=== PATIENT | male | born 1990 | race Caucasian/White ===

== ENCOUNTER 2025-01-18 10:18 | Inpatient (IN) | payer OTHER ==
[~2025-01-18] VITALS: Ht 180.3 cm; Wt 67.6 kg
[2025-01-18 10:41] LABS: VENOUS BASE EXCESS -1.3 (-2.0-2.0); VENOUS HCO3 25.5 MMOL/L (23.0-27.0); VENOUS PARTIAL PRESSURE CO2 50.3 mmHg (38.0-50.0); VENOUS PARTIAL PRESSURE O2 42.5 mmHg (30.0-50.0); VENOUS PH 7.322 UNITS (7.330-7.430); VENOUS STANDARD HCO3 22.8 MMOL/L
[2025-01-18 10:44] LABS: BASO # 0.1 10^3/uL (0.0-0.2); BASO % 0.7 % (0.0-1.0); EOS # 0.1 10^3/uL (0.0-0.5); EOS % 0.8 % (0.0-3.0); HEMATOCRIT 41.5 % (42.0-52.0); HEMOGLOBIN 13.9 g/dl (13.5-17.5); LYMPH # 1.7 10^3/uL (1.5-5.0); MEAN CORPUSCULAR HEMOGLOBIN 32.8 pg (27.0-33.0); MEAN CORPUSCULAR HGB CONC 33.5 g/dl (32.0-36.5); MEAN CORPUSCULAR VOLUME 97.9 fl (80.0-96.0); MONO # 0.7 10^3/uL (0.0-0.8); MONO % 8.5 % (2.0-8.0); NEUTROPHILS % 69.8 % (36.0-66.0); PLATELET COUNT, AUTOMATED 220 10^3/uL (150-450); RED BLOOD COUNT 4.24 10^6/uL (4.30-6.10); WHITE BLOOD COUNT 8.6 10^3/uL (4.0-10.0)
[2025-01-18] MEDS ORDERED: ISOVUE-370 76% 100ML VIAL As Ordered ONE (10:51)
[2025-01-18] MEDS: NS (Normal Saline) 0.9% 1,000 ML IV ONE ×2 (10:53→12:06)
[2025-01-18 11:11] LABS: OSMOLALITY SERUM 295 MOSM/KG (275-295)
[2025-01-18 11:13] LABS: ETHYL ALCOHOL (ETHANOL) < 0.003 % (0.000-0.010)
[2025-01-18 11:14] LABS: SALICYLATE LEVEL < 3.0 MG/DL (<30)
[2025-01-18 11:15] LABS: ALKALINE PHOSPHATASE 48 U/L (40-129); ALT/SGPT 17 U/L (7.0-40); AST/SGOT 35 U/L (<34); BILIRUBIN,DIRECT 0.3 MG/DL (<0.4); BILIRUBIN,TOTAL 1.1 MG/DL (0.3-1.2); BLOOD UREA NITROGEN 6 MG/DL (9-23); CALCIUM LEVEL 9.3 MG/DL (8.5-10.1); CARBON DIOXIDE LEVEL 25 MMOL/L (20-31); CHLORIDE LEVEL 97 MMOL/L (98-107); CREATININE FOR GFR 0.77 MG/DL (0.70-1.30); GLOMERULAR FILTRATION RATE > 90.0 (>60); GLUCOSE, FASTING 114 MG/DL (60-100); POTASSIUM SERUM 3.4 MMOL/L (3.5-5.1); SODIUM LEVEL 137 MMOL/L (136-145); TOTAL PROTEIN 7.6 G/DL (5.7-8.2)
[2025-01-18 11:17] LABS: THYROID STIMULATING HORMONE 4.377 uIU/ML (0.55-4.78)
[2025-01-18 11:46] LABS: CPK CREATINE PHOSPHOKINASE 293 U/L (46-171)
[2025-01-18 11:58] LABS: CK-MB VALUE MASS 1.5 NG/ML (<3.6); MB/CK RELATIVE INDEX 0.51 (< OR =4)
[2025-01-18] MEDS: LIDOCAINE 2% 5ML JELLY UROJET TOP ONE (12:00)
[2025-01-18 12:02] LABS: VALPROIC ACID (DEPAKOTE) < 3.0 UG/ML (50.0-100.0)
[2025-01-18 12:06] LABS: ABG BASE EXCESS 0.8 (-2.0-2.0); ABG HCO3 24.5 MMOL/L (22.0-26.0); ABG O2 SATURATION 97.8 % (95.0-99.0); ABG PARTIAL PRESSURE CO2 36.1 mmHg (35.0-45.0); ABG PARTIAL PRESSURE O2 104.4 mmHg (75.0-100.0); ABG STANDARD HCO3 25.2 MMOL/L. (22.0-26.0); ABG TOTAL CO2 25.6 MMOL/L (22.0-29.0); ABG pH (ARTERIAL) 7.449 UNITS (7.350-7.450)
[2025-01-18 12:18] LABS: KETONE, URINE AUTO RFX NEGATIVE (NEGATIVE); LEUKOCYTE ESTERASE UR AUTO RFX NEGATIVE (NEGATIVE); NITRITE, URINE AUTO RFX NEGATIVE (NEGATIVE); RBC, URINE AUTO RFX 2 /HPF (0-3); SQUAM EPITHELIAL CELL UR AURFX 0 /HPF (0-6); WBC, URINE AUTO RFX 2 /HPF (0-3)
[2025-01-18] MEDS ORDERED: LORazepam 2 MG TAB PO PRN (12:20)
[2025-01-18] MEDS: LORazepam 2 MG TAB PO PRN (12:26)
[2025-01-18 12:39] LABS: AMPHETAMINES LEVEL URINE NEGATIVE (NEGATIVE); PHENCYCLIDINE URINE NEGATIVE (NEGATIVE)
[2025-01-18 12:40] LABS: BARBITURATES URINE NEGATIVE (NEGATIVE); BENZODIAZEPINES URINE NEGATIVE (NEGATIVE); COCAINE METABOLITE URINE NEGATIVE (NEGATIVE); METHADONE URINE NEGATIVE (NEGATIVE); OPIATES URINE NEGATIVE (NEGATIVE)
[2025-01-18 12:42] LABS: CK-MB VALUE MASS 4.7 NG/ML (<3.6)
[2025-01-18 12:43] LABS: MB/CK RELATIVE INDEX 1.14 (< OR =4)
[2025-01-18 12:43] LABS: CANNABINOIDS URINE POSITIVE (NEGATIVE)
[2025-01-18 13:15] LABS: MAGNESIUM LEVEL 1.9 MG/DL (1.8-2.4)
[2025-01-18] MEDS: THIAMINE 100 MG TAB PO SCH (13:42)
[2025-01-18] MEDS: LR 1,000 ML IV ONE (14:20)
[2025-01-18] MEDS: POTASSIUM CHLORIDE 10MEQ SR TABLET PO ONE (14:20)
[2025-01-18 14:32] LABS: FREE T4 1.09 NG/DL (0.89-1.76)
[2025-01-18 14:33] LABS: PROLACTIN 15.31 NG/ML (2.1-17.7)
[2025-01-18] MEDS ORDERED: SERT50TA29 PO (18:36)
[2025-01-18] MEDS ORDERED: ALBU8.5H INH (18:36)
[2025-01-18] MEDS ORDERED: ADVA1AER9 INH (18:36)
[2025-01-18] MEDS ORDERED: FAMO1TAB11 PO (18:36)
[2025-01-18] MEDS ORDERED: BUSP5TA PO (18:36)
[2025-01-18] MEDS ORDERED: ALBU2.5V10 INH (18:36)
[2025-01-18] MEDS ORDERED: HYDR50TA70 PO (18:36)
[2025-01-18] MEDS ORDERED: TRAZ-252 PO (18:36)
[2025-01-18] MEDS ORDERED: CLOT1CRE71 TOP (18:36)
[2025-01-18] MEDS ORDERED: HOME MED LIST COMPLETE! XX SCH (18:40)
[2025-01-18 19:34] VITALS: BP 155/89; TEMP 98.5; O2SAT 96
[2025-01-18] MEDS ORDERED: THIAMINE 100 MG TAB PO SCH (21:00)
[2025-01-18 21:45] VITALS: BP 155/89
[2025-01-18 23:50] VITALS: BP 155/93; TEMP 96.8; O2SAT 99
[2025-01-19] VITALS (24 sets, daily range): BP systolic 96–159; BP diastolic 58–95; TEMP 97–97.7; O2SAT 97–100
[2025-01-19 05:22] LABS: BASO # 0.1 10^3/uL (0.0-0.2); BASO % 0.9 % (0.0-1.0); EOS # 0.1 10^3/uL (0.0-0.5); EOS % 1.7 % (0.0-3.0); HEMATOCRIT 37.5 % (42.0-52.0); HEMOGLOBIN 12.8 g/dl (13.5-17.5); LYMPH # 1.8 10^3/uL (1.5-5.0); LYMPH % 26.7 % (24.0-44.0); MEAN CORPUSCULAR HEMOGLOBIN 32.7 pg (27.0-33.0); MEAN CORPUSCULAR HGB CONC 34.1 g/dl (32.0-36.5); MEAN CORPUSCULAR VOLUME 95.9 fl (80.0-96.0); MONO # 0.6 10^3/uL (0.0-0.8); MONO % 8.1 % (2.0-8.0); NEUTROPHILS # 4.3 10^3/uL (1.5-8.5); NEUTROPHILS % 62.2 % (36.0-66.0); PLATELET COUNT, AUTOMATED 204 10^3/uL (150-450); RED BLOOD COUNT 3.91 10^6/uL (4.30-6.10); WHITE BLOOD COUNT 6.9 10^3/uL (4.0-10.0)
[2025-01-19 06:05] LABS: HEPATITIS B SURFACE ANTIGEN NEGATIVE (NEGATIVE)
[2025-01-19 06:26] LABS: HEPATITIS C VIRUS ABY INDEX 0.02 INDEX (<0.8)
[2025-01-19 06:27] LABS: ALBUMIN 3.6 G/DL (3.2-5.2); ALKALINE PHOSPHATASE 45 U/L (40-129); ALT/SGPT 17 U/L (7.0-40); AST/SGOT 43 U/L (<34); BILIRUBIN,TOTAL 0.8 MG/DL (0.3-1.2); BLOOD UREA NITROGEN < 5 MG/DL (9-23); CALCIUM LEVEL 8.7 MG/DL (8.5-10.1); CARBON DIOXIDE LEVEL 26 MMOL/L (20-31); CHLORIDE LEVEL 99 MMOL/L (98-107); CHOLESTEROL LEVEL 220 MG/DL (<200); CHOLESTEROL RISK RATIO 2.51 (<5); CREATININE FOR GFR 0.57 MG/DL (0.70-1.30); GLOMERULAR FILTRATION RATE > 90.0 (>60); GLUCOSE, FASTING 83 MG/DL (60-100); HDL CHOLESTEROL 87.6 MG/DL (>40); MAGNESIUM LEVEL 1.7 MG/DL (1.8-2.4); NON-HDL-C 132.4 MG/DL; POTASSIUM SERUM 3.5 MMOL/L (3.5-5.1); SODIUM LEVEL 135 MMOL/L (136-145); TOTAL PROTEIN 6.8 G/DL (5.7-8.2); TRIGLYCERIDES LEVEL 297 MG/DL (<150)
[2025-01-19] MEDS ORDERED: LACT20EL PO (07:31)
[2025-01-19 07:32] LABS: HEPATITIS B CORE ANTIBODY IGM NEGATIVE (NEGATIVE)
[2025-01-19] MEDS ORDERED: FOLIC ACID 1MG TAB PO SCH (09:00)
[2025-01-19] MEDS ORDERED: MULTIVITAMINS/MINERALS THERAP 1 TAB PO SCH (09:00)
[2025-01-19] MEDS: LACTULOSE 20GM/30ML SYRUP UDC PO ONE (09:09)
[2025-01-19] MEDS: FOLIC ACID 1MG TAB PO SCH (09:09)
[2025-01-19] MEDS: MULTIVITAMINS/MINERALS THERAP 1 TAB PO SCH (09:10)
[2025-01-19] MEDS: diphenhydrAMINE 50MG/ML VIAL IV STA (10:32)
[2025-01-19] MEDS: LORazepam 2 MG/ML 1ML VIAL IV STA (10:33)
[2025-01-19] MEDS ORDERED: HALOPERIDOL LACTATE 5MG/ML VIAL As Ordered ONE (10:57)
[2025-01-19] MEDS: HALOPERIDOL LACTATE 5MG/ML VIAL IM STA (11:03)
[2025-01-19] MEDS ORDERED: diazePAM 10MG/2ML SYRINGE As Ordered ONE (11:16)
[2025-01-19] MEDS: diazePAM 10MG/2ML SYRINGE IM ONE ×2 (11:22→11:27)
[2025-01-19] MEDS ORDERED: MIDAZOLAM 5MG 5ML VIAL (FOR CHEST TUBE INSERTIONS) As Ordered ONE (11:24)
[2025-01-19] MEDS: MIDAZOLAM 5MG/ML 1ML VIAL IM ONE (11:27)
[2025-01-19] MEDS ORDERED: MIDAZOLAM INJ 2MG/2ML VIAL As Ordered ONE (11:29)
[2025-01-19] MEDS: MIDAZOLAM INJ 2MG/2ML VIAL IV STA (11:30)
[2025-01-19] MEDS: diazePAM 10MG/2ML SYRINGE IV ONE (11:33)
[2025-01-19] MEDS ORDERED: dexmedeTOMIDine (4MCG/ML)200MCG/50ML BTL (PRECEDEX) As Ordered ONE (11:44)
[2025-01-19] MEDS: dexmedeTOMidine 200 MCG in IV 1 EA IV SCH (12:40)
[2025-01-19] MEDS: diazePAM 10MG/2ML SYRINGE IV PRN ×2 (13:09→15:57)
[2025-01-19 13:20] LABS: VENOUS BASE EXCESS -0.1 (-2.0-2.0); VENOUS HCO3 24.6 MMOL/L (23.0-27.0); VENOUS O2 SATURATION 99.1 % (60.0-80.0); VENOUS PARTIAL PRESSURE CO2 40.6 mmHg (38.0-50.0); VENOUS PARTIAL PRESSURE O2 241.2 mmHg (30.0-50.0); VENOUS PH 7.401 UNITS (7.330-7.430); VENOUS STANDARD HCO3 24.4 MMOL/L; VENOUS TOTAL CO2 25.9 MMOL/L (24.0-28.0)
[2025-01-19] MEDS: FORMOTEROL FUMARATE 20 MCG/2 ML INHALATION SOLUTION (PERFOROMIST) INH SCH (13:55)
[2025-01-19] MEDS: BUDESONIDE 0.5 MG/2 ML INHALATION SUSPENSION NEB SCH (13:56)
[2025-01-19] MEDS ORDERED: OXAZEPAM 15MG CAP PO SCH (14:00)
[2025-01-19 18:58] LABS: VENOUS BASE EXCESS -3.5 (-2.0-2.0); VENOUS HCO3 20.7 MMOL/L (23.0-27.0); VENOUS O2 SATURATION 99.2 % (60.0-80.0); VENOUS PARTIAL PRESSURE CO2 35.2 mmHg (38.0-50.0); VENOUS PARTIAL PRESSURE O2 176.7 mmHg (30.0-50.0); VENOUS PH 7.388 UNITS (7.330-7.430); VENOUS STANDARD HCO3 21.6 MMOL/L; VENOUS TOTAL CO2 21.8 MMOL/L (24.0-28.0)
[2025-01-19] MEDS: LACTULOSE 20GM/30ML SYRUP UDC PO SCH (19:56)
[2025-01-20] VITALS (14 sets, daily range): BP systolic 99–155; BP diastolic 53–93; TEMP 97–98.4; O2SAT 97–99
[2025-01-20 00:55] LABS: VENOUS BASE EXCESS -3.2 (-2.0-2.0); VENOUS HCO3 23.4 MMOL/L (23.0-27.0); VENOUS O2 SATURATION 77.9 % (60.0-80.0); VENOUS PARTIAL PRESSURE CO2 47.8 mmHg (38.0-50.0); VENOUS PARTIAL PRESSURE O2 46.4 mmHg (30.0-50.0); VENOUS PH 7.308 UNITS (7.330-7.430); VENOUS STANDARD HCO3 21.4 MMOL/L; VENOUS TOTAL CO2 24.9 MMOL/L (24.0-28.0)
[2025-01-20 05:09] LABS: BASO # 0.1 10^3/uL (0.0-0.2); BASO % 0.8 % (0.0-1.0); EOS # 0.2 10^3/uL (0.0-0.5); EOS % 3.2 % (0.0-3.0); HEMATOCRIT 37.9 % (42.0-52.0); HEMOGLOBIN 12.9 g/dl (13.5-17.5); LYMPH # 1.7 10^3/uL (1.5-5.0); LYMPH % 25.1 % (24.0-44.0); MEAN CORPUSCULAR HEMOGLOBIN 32.9 pg (27.0-33.0); MEAN CORPUSCULAR VOLUME 96.7 fl (80.0-96.0); MONO # 0.6 10^3/uL (0.0-0.8); MONO % 8.3 % (2.0-8.0); NEUTROPHILS # 4.2 10^3/uL (1.5-8.5); NEUTROPHILS % 62.1 % (36.0-66.0); PLATELET COUNT, AUTOMATED 200 10^3/uL (150-450); RED BLOOD COUNT 3.92 10^6/uL (4.30-6.10); WHITE BLOOD COUNT 6.7 10^3/uL (4.0-10.0)
[2025-01-20 05:10] LABS: VENOUS BASE EXCESS -2.5 (-2.0-2.0); VENOUS HCO3 22.3 MMOL/L (23.0-27.0); VENOUS O2 SATURATION 96.2 % (60.0-80.0); VENOUS PARTIAL PRESSURE CO2 38.4 mmHg (38.0-50.0); VENOUS PARTIAL PRESSURE O2 84.5 mmHg (30.0-50.0); VENOUS PH 7.381 UNITS (7.330-7.430); VENOUS STANDARD HCO3 22.4 MMOL/L; VENOUS TOTAL CO2 23.4 MMOL/L (24.0-28.0)
[2025-01-20 05:41] LABS: ALBUMIN 3.6 G/DL (3.2-5.2); ALKALINE PHOSPHATASE 41 U/L (40-129); ALT/SGPT 20 U/L (7.0-40); AST/SGOT 59 U/L (<34); BLOOD UREA NITROGEN 6 MG/DL (9-23); CARBON DIOXIDE LEVEL 24 MMOL/L (20-31); CHLORIDE LEVEL 105 MMOL/L (98-107); CREATININE FOR GFR 0.64 MG/DL (0.70-1.30); GLOMERULAR FILTRATION RATE > 90.0 (>60); GLUCOSE, FASTING 83 MG/DL (60-100); POTASSIUM SERUM 3.2 MMOL/L (3.5-5.1); SODIUM LEVEL 139 MMOL/L (136-145); TOTAL PROTEIN 6.7 G/DL (5.7-8.2)
[2025-01-20] MEDS: POTASSIUM CHLORIDE 10% LIQ 20MEQ/15ML UDC PO ONE (07:54)
[2025-01-20] MEDS: ACETAMINOPHEN 325 MG TAB PO PRN (08:37)
[2025-01-20] MEDS: PANTOPRAZOLE 40MG VIAL IV SCH (09:20)
[2025-01-20] MEDS: ENOXAPARIN 40MG/0.4ML SYRINGE (J1650 PER 10MG) SC SCH (09:21)
[2025-01-20] MEDS: OXAZEPAM 15MG CAP PO SCH (09:22)
[2025-01-20 11:26] LABS: HIV 1&2 SCREEN NEGATIVE (NEGATIVE)
[2025-01-20 11:50] LABS: HEPATITIS B SURFACE ANTIBODY POSITIVE (POSITIVE)
[2025-01-20 12:02] LABS: HEPATITIS B SURFACE ANTIGEN NEGATIVE (NEGATIVE)
[2025-01-20] MEDS: NICOTINE 21MG/24HR 1 EA TRANSDERMAL TD SCH (12:08)
[2025-01-20] MEDS: LORazepam 2 MG TAB PO PRN (12:09)
[2025-01-20 12:23] LABS: HEPATITIS C VIRUS ABY INDEX 0.02 INDEX (<0.8)
[2025-01-20] MEDS: chlordiazePOXIDE 25 MG CAP PO SCH (16:12)
[2025-01-20] MEDS: ADVAIR HFA 230/21MCG INHALER INH SCH (19:09)
[2025-01-20] MEDS: traZODone 50 MG TAB PO PRN (20:17)
[2025-01-20] MEDS: busPIRone 5 MG TAB PO SCH (20:18)
[2025-01-20] MEDS: THIAMINE 100 MG TAB PO SCH (20:18)
[2025-01-21 06:00] VITALS: BP 160/60; TEMP 98.5; O2SAT 97
[2025-01-21 06:11] VITALS: BP 160/60
[2025-01-21 06:37] LABS: BASO % 0.8 % (0.0-1.0); EOS # 0.2 10^3/uL (0.0-0.5); EOS % 3.7 % (0.0-3.0); HEMATOCRIT 36.3 % (42.0-52.0); HEMOGLOBIN 12.3 g/dl (13.5-17.5); MEAN CORPUSCULAR HEMOGLOBIN 33.1 pg (27.0-33.0); MEAN CORPUSCULAR HGB CONC 33.9 g/dl (32.0-36.5); MEAN CORPUSCULAR VOLUME 97.6 fl (80.0-96.0); MONO # 0.5 10^3/uL (0.0-0.8); MONO % 9.9 % (2.0-8.0); NEUTROPHILS # 2.4 10^3/uL (1.5-8.5); NEUTROPHILS % 46.2 % (36.0-66.0); PLATELET COUNT, AUTOMATED 213 10^3/uL (150-450); RED BLOOD COUNT 3.72 10^6/uL (4.30-6.10); WHITE BLOOD COUNT 5.1 10^3/uL (4.0-10.0)
[2025-01-21 06:51] LABS: ALBUMIN 3.7 G/DL (3.2-5.2); ALKALINE PHOSPHATASE 51 U/L (40-129); ALT/SGPT 25 U/L (7.0-40); AST/SGOT 48 U/L (<34); BILIRUBIN,TOTAL 0.4 MG/DL (0.3-1.2); BLOOD UREA NITROGEN < 5 MG/DL (9-23); CALCIUM LEVEL 8.8 MG/DL (8.5-10.1); CARBON DIOXIDE LEVEL 24 MMOL/L (20-31); CHLORIDE LEVEL 106 MMOL/L (98-107); CREATININE FOR GFR 0.59 MG/DL (0.70-1.30); GLOMERULAR FILTRATION RATE > 90.0 (>60); GLUCOSE, FASTING 89 MG/DL (60-100); MAGNESIUM LEVEL 1.7 MG/DL (1.8-2.4); POTASSIUM SERUM 3.2 MMOL/L (3.5-5.1); SODIUM LEVEL 139 MMOL/L (136-145); TOTAL PROTEIN 6.9 G/DL (5.7-8.2)
[2025-01-21] MEDS ORDERED: MAG SULF 1GM/100ML (MAG RUN) 1 GM in IV 1 EA IV ONE (08:00)
[2025-01-21] MEDS: MAGNESIUM OXIDE 400MG TAB (MAG-OX) PO SCH (08:54)
[2025-01-21] MEDS ORDERED: KCL 10MEQ/100ML SWI (KRUN) 10 MEQ in IV 1 EA IV SCH (09:00)
[2025-01-21] MEDS ORDERED: PANTOPRAZOLE 40MG TAB (PROTONIX) PO SCH (09:00)
[2025-01-21] MEDS: MAGNESIUM OXIDE 400MG TAB (MAG-OX) PO ONE (09:08)
[2025-01-21] MEDS: POTASSIUM CHLORIDE 10MEQ SR TABLET PO ONE (09:08)
[2025-01-21] MEDS: FOLIC ACID 1MG TAB PO SCH (09:09)
[2025-01-21] MEDS: MULTIVITAMINS/MINERALS THERAP 1 TAB PO SCH (09:09)
[2025-01-21] MEDS: FAMOTIDINE 20 MG TAB PO SCH (09:09)
[2025-01-21 09:10] VITALS: BP 160/60
[2025-01-21] MEDS: METOPROLOL SUCC (TopROL XL) 50MG **XL** TAB PO ONE (09:10)
[2025-01-21] MEDS: SERTRALINE HCL 50 MG TAB PO SCH (09:10)
[2025-01-21] MEDS ORDERED: MAGN400C PO (10:15)
[2025-01-21] MEDS ORDERED: POTA-298 PO (10:15)
[2025-01-21] MEDS ORDERED: TOPR25TA PO (10:15)
[2025-01-21] MEDS ORDERED: CHLO25CA10 PO (10:18)
== END 2025-01-21 13:27 | disposition home or self-care (01) | DRG 775 ==
LOC: EDBD 10:18 → M ED 10:18 → M ED INP 13:53 → INTOOBSV 13:53 → M PCU 16:13 → M ICU 01-19 11:37 → OBSVTOIN 01-19 14:35
PROVIDERS: ADMIT General Practice; ATTEND Internal Medicine
PROC: B246ZZZ Ultrasonography of Right and Left Heart (ICD-10-PCS; principal; 2025-01-19)
DX: F10.231 Alcohol dependence with withdrawal delirium (principal); G93.41 Metabolic encephalopathy; G92.8 Other toxic encephalopathy; E87.29 Other acidosis; E83.42 Hypomagnesemia; K76.82 Hepatic encephalopathy; I10 Essential (primary) hypertension; F41.9 Anxiety disorder, unspecified; J45.909 Unspecified asthma, uncomplicated; I16.0 Hypertensive urgency; F43.10 Post-traumatic stress disorder, unspecified; D75.89 Other specified diseases of blood and blood-forming organs; Z79.899 Other long term (current) drug therapy; Z59.01 Sheltered homelessness; Z87.820 Personal history of traumatic brain injury; F17.200 Nicotine dependence, unspecified, uncomplicated; F19.10 Other psychoactive substance abuse, uncomplicated; E87.6 Hypokalemia; K21.9 Gastro-esophageal reflux disease without esophagitis

== ENCOUNTER 2025-04-16 00:21 | Observation (INO) | payer OTHER ==
[~2025-04-16] VITALS: Ht 180.3 cm; Wt 61.3 kg
[~2025-04-16 00:21] MED LIST: ADVA115A INH; ADVA1AER9 INH; ALBU2.5V10 INH; ALBU8.5H INH; BUSP10TA PO; BUSP5TA PO; CAPS0.022 TOP; CHLO25CA10 PO; CLOB5CR TOP; CLOT1CRE71 TOP; DICL-235 PO; FAMO1TAB11 PO; FAMO20TA PO; HYDR-3364 PO; HYDR50TA70 PO; LACT20EL PO; LISI10TA22 PO; MAGN400C PO; MAGN400T2 PO; MAGN400T33 PO; METO1TAB32 PO; OMEP40CA4 PO; POTA-298 PO; RAME8TAB2 PO; SERT50TA29 PO; SUCR1TA PO; TOPR25TA PO; TRAZ-252 PO; TRAZ-257 PO; ZOLO100T PO
[2025-04-16 00:52] LABS: BASO # 0.1 10^3/uL (0.0-0.2); BASO % 1.3 % (0.0-1.0); EOS # 0.1 10^3/uL (0.0-0.5); EOS % 3.1 % (0.0-3.0); LYMPH # 1.5 10^3/uL (1.5-5.0); LYMPH % 32.5 % (24.0-44.0); MONO # 0.5 10^3/uL (0.0-0.8); MONO % 9.9 % (2.0-8.0); NEUTROPHILS # 2.4 10^3/uL (1.5-8.5); NEUTROPHILS % 52.8 % (36.0-66.0); PLATELET COUNT, AUTOMATED 171 10^3/uL (150-450)
[2025-04-16 01:20] LABS: CPK CREATINE PHOSPHOKINASE 300 U/L (46-171)
[2025-04-16 01:23] LABS: CALCIUM LEVEL 8.5 MG/DL (8.5-10.1); CARBON DIOXIDE LEVEL 29 MMOL/L (20-31); CHLORIDE LEVEL 97 MMOL/L (98-107); CK-MB VALUE MASS 2.9 NG/ML (<3.6); CREATININE FOR GFR 0.63 MG/DL (0.70-1.30); GLOMERULAR FILTRATION RATE > 90.0 (>60); MB/CK RELATIVE INDEX 0.96 (< OR =4); POTASSIUM SERUM 3.2 MMOL/L (3.5-5.1); SODIUM LEVEL 139 MMOL/L (136-145)
[2025-04-16 02:19] LABS: CK-MB VALUE MASS 2.8 NG/ML (<3.6)
[2025-04-16 02:21] LABS: CPK CREATINE PHOSPHOKINASE 284.0 U/L (46-171); MB/CK RELATIVE INDEX 0.98 (< OR =4)
[2025-04-16] MEDS ORDERED: ISOVUE-370 76% 100 ML VIAL As Ordered ONE (07:26)
[2025-04-16 07:38] LABS: ALT/SGPT 19 U/L (7.0-40); AST/SGOT 39 U/L (<34)
[2025-04-16] MEDS: ONDANSETRON 4MG 2ML VIAL IV ONE (08:01)
[2025-04-16] MEDS: MORPHINE 2 MG/ML 1 ML VIAL IV PRN (08:01)
[2025-04-16] MEDS: NS (Normal Saline) 0.9% 1,000 ML IV ONE (08:02)
[2025-04-16] MEDS ORDERED: MORPHINE 2 MG/ML 1 ML VIAL IV PRN (10:50)
[2025-04-16] MEDS: SERTRALINE 100 MG TAB PO ONE (11:40)
[2025-04-16] MEDS: LR 1,000 ML IV ONE (11:50)
[2025-04-16] MEDS: KETOROLAC 30 MG/ML 1 ML VIAL IV SCH (11:51)
[2025-04-16] MEDS: PANTOPRAZOLE 40MG VIAL IV ONE (11:51)
[2025-04-16] MEDS: HYDROMORPHONE HCL 0.5 MG/0.5 ML SYRINGE IV ONE (11:52)
[2025-04-16] MEDS: amLODIPine 10 MG TAB PO ONE (13:20)
[2025-04-16] MEDS ORDERED: traZODone 100 MG TAB PO PRN (13:25)
[2025-04-16] MEDS ORDERED: CLOB5CR TOP (13:53)
[2025-04-16] MEDS ORDERED: TRAZ-257 PO (13:53)
[2025-04-16] MEDS ORDERED: LISI10TA22 PO (13:53)
[2025-04-16] MEDS ORDERED: ROZE8TAB16 PO (13:53)
[2025-04-16] MEDS ORDERED: ZOLO100T PO (13:53)
[2025-04-16] MEDS ORDERED: BUSP10TA PO (13:53)
[2025-04-16] MEDS ORDERED: HYDR-3363 PO (13:53)
[2025-04-16] MEDS ORDERED: FAMO20TA PO (13:53)
[2025-04-16] MEDS ORDERED: ADVA115A INH (13:53)
[2025-04-16] MEDS ORDERED: HOME MED LIST COMPLETE! XX SCH (14:00)
[2025-04-16] MEDS: amLODIPine 10 MG TAB PO SCH (16:00)
[2025-04-16] MEDS: SERTRALINE 100 MG TAB PO SCH (16:00)
[2025-04-16] MEDS: KCL 40MEQ in NS 1000ML 1,000 ML IV SCH (16:02)
[2025-04-16] MEDS: ISOSORBIDE DINITRATE 10 MG TAB PO SCH (16:02)
[2025-04-16] MEDS: FOLIC ACID 1 MG TAB PO SCH (16:07)
[2025-04-16] MEDS: THIAMINE 100 MG TAB PO SCH (16:07)
[2025-04-16] MEDS: MULTIVITAMINS/MINERALS THERAP 1 TAB PO SCH (16:07)
[2025-04-16] MEDS: SUCRALFATE 1 GM TAB PO SCH (17:48)
[2025-04-16] MEDS: **hydrALAZINE** 10 MG TAB PO SCH (17:49)
[2025-04-16] MEDS: PERCOCET 5MG/325MG TAB PO PRN ×2 (17:49→22:33)
[2025-04-16 18:31] LABS: CK-MB VALUE MASS 2.3 NG/ML (<3.6)
[2025-04-16 18:32] LABS: CPK CREATINE PHOSPHOKINASE 196.0 U/L (46-171); MB/CK RELATIVE INDEX 1.17 (< OR =4)
[2025-04-17 02:01] LABS: CK-MB VALUE MASS 2.2 NG/ML (<3.6)
[2025-04-17 02:02] LABS: CPK CREATINE PHOSPHOKINASE 176.0 U/L (46-171); MB/CK RELATIVE INDEX 1.25 (< OR =4)
[2025-04-17 06:58] LABS: BASO # 0.0 10^3/uL (0.0-0.2); BASO % 0.5 % (0.0-1.0); EOS # 0.3 10^3/uL (0.0-0.5); EOS % 4.5 % (0.0-3.0); LYMPH # 1.3 10^3/uL (1.5-5.0); LYMPH % 19.9 % (24.0-44.0); MONO # 0.5 10^3/uL (0.0-0.8); MONO % 6.8 % (2.0-8.0); NEUTROPHILS # 4.5 10^3/uL (1.5-8.5); NEUTROPHILS % 67.8 % (36.0-66.0); PLATELET COUNT, AUTOMATED 165 10^3/uL (150-450)
[2025-04-17 07:27] LABS: CK-MB VALUE MASS 2.5 NG/ML (<3.6)
[2025-04-17 07:29] LABS: CPK CREATINE PHOSPHOKINASE 173 U/L (46-171); MB/CK RELATIVE INDEX 1.44 (< OR =4)
[2025-04-17 07:31] LABS: ALT/SGPT 20 U/L (7.0-40); AST/SGOT 39 U/L (<34); CALCIUM LEVEL 9.0 MG/DL (8.5-10.1); CARBON DIOXIDE LEVEL 29 MMOL/L (20-31); CHLORIDE LEVEL 101 MMOL/L (98-107); CREATININE FOR GFR 0.61 MG/DL (0.70-1.30); GLOMERULAR FILTRATION RATE > 90.0 (>60); POTASSIUM SERUM 4.4 MMOL/L (3.5-5.1); SODIUM LEVEL 140 MMOL/L (136-145)
[2025-04-17] MEDS: PERCOCET 5MG/325MG TAB PO ONE (08:00)
[2025-04-17] MEDS ORDERED: PANTOPRAZOLE 40MG VIAL IV SCH (09:00)
[2025-04-17 10:38] VITALS: BP 147/108
[2025-04-17] MEDS: LOSARTAN 50 MG TABLET PO ONE (10:38)
[2025-04-17] MEDS: PANTOPRAZOLE 40MG TAB PO ONE (10:39)
[2025-04-17] MEDS: amLODIPine 10 MG TAB PO SCH (10:39)
[2025-04-17] MEDS: POTASSIUM CHLORIDE 10MEQ SR TABLET PO ONE (10:39)
[2025-04-17] MEDS ORDERED: AMLO1TAB25 PO (11:14)
[2025-04-17] MEDS ORDERED: LOSA50TA28 PO (11:14)
[2025-04-17] MEDS ORDERED: PROT1TAB2 PO (11:14)
[2025-04-17] MEDS ORDERED: TALK1KIT MC (11:14)
[2025-04-17] MEDS ORDERED: ZOLO100T PO (11:14)
[2025-04-17] MEDS ORDERED: CARA1TAB6 PO (11:14)
[2025-04-17 12:00] VITALS: BP 154/91; TEMP 97.9; O2SAT 98
[2025-04-17] MEDS: LACTULOSE 20 GM/30 ML SYRUP UDC PO ONE (12:12)
[2025-04-17] MEDS: SENNOSIDES/DOCUSATE SODIUM 8.6 MG/50MG TAB PO ONE (12:13)
[2025-04-18] MEDS ORDERED: PANTOPRAZOLE 40MG TAB PO SCH (09:00)
[2025-04-18] MEDS ORDERED: LOSARTAN 50 MG TABLET PO SCH (09:00)
== END 2025-04-17 12:26 | disposition home or self-care (01) ==
LOC: M ED 00:21 → UNDOADMOB 11:22 → INTOOBSV 11:22 → M ED INP 11:22
PROVIDERS: ADMIT General Practice; ATTEND General Practice
DX: R07.89 Other chest pain (principal); K29.70 Gastritis, unspecified, without bleeding; I16.0 Hypertensive urgency; E87.6 Hypokalemia; Z91.148 Patient's other noncompliance with medication regimen for other reason; F19.11 Other psychoactive substance abuse, in remission; Z87.820 Personal history of traumatic brain injury; F43.10 Post-traumatic stress disorder, unspecified; F41.9 Anxiety disorder, unspecified; F10.90 Alcohol use, unspecified, uncomplicated; F12.90 Cannabis use, unspecified, uncomplicated; F17.200 Nicotine dependence, unspecified, uncomplicated; J45.909 Unspecified asthma, uncomplicated; K21.9 Gastro-esophageal reflux disease without esophagitis; Z59.00 Homelessness unspecified; Z79.899 Other long term (current) drug therapy; Z79.51 Long term (current) use of inhaled steroids
CPT/HCPCS: 36415; 71045; 71275; 74177; 78226; 80048; 80053; 80076; 82550; 82553; 83690; 84484; 85025; 87486; 87581; 87633; 87798; 93005; 93041; 94760; 96374; 96375; 96376; 99285; A9537; J1171; J1885; J2405; J2470; Q9967

== ENCOUNTER 2025-05-23 13:47 | Emergency (ER) | payer OTHER ==
[~2025-05-23] VITALS: Ht 180.3 cm; Wt 65.1 kg
[~2025-05-23 13:47] MED LIST changes: +AMLO1TAB25 PO; +CARA1TAB6 PO; +HYDR-3363 PO; +LOSA50TA28 PO; +PROT1TAB2 PO; +ROZE8TAB16 PO; +TALK1KIT MC
[2025-05-23] MEDS: ONDANSETRON 4MG 2ML VIAL IV ONE (18:38)
[2025-05-23] MEDS: NS (Normal Saline) 0.9% 1,000 ML IV ONE (18:39)
[2025-05-23 18:50] LABS: BASO # 0.1 10^3/uL (0.0-0.2); BASO % 1.4 % (0.0-1.0); EOS # 0.1 10^3/uL (0.0-0.5); EOS % 1.8 % (0.0-3.0); LYMPH # 1.8 10^3/uL (1.5-5.0); LYMPH % 32.6 % (24.0-44.0); MONO # 0.4 10^3/uL (0.0-0.8); MONO % 6.9 % (2.0-8.0); NEUTROPHILS # 3.2 10^3/uL (1.5-8.5); NEUTROPHILS % 57.1 % (36.0-66.0); PLATELET COUNT, AUTOMATED 225 10^3/uL (150-450)
[2025-05-23 19:13] LABS: ALT/SGPT 35 U/L (7.0-40); AST/SGOT 81 U/L (<34); CALCIUM LEVEL 9.1 MG/DL (8.5-10.1); CARBON DIOXIDE LEVEL 29 MMOL/L (20-31); CHLORIDE LEVEL 99 MMOL/L (98-107); CREATININE FOR GFR 0.58 MG/DL (0.70-1.30); GLOMERULAR FILTRATION RATE > 90.0 (>60); POTASSIUM SERUM 3.8 MMOL/L (3.5-5.1); SODIUM LEVEL 142 MMOL/L (136-145)
[2025-05-23] MEDS: ACETAMINOPHEN *IV* 1,000 MG in IV 1 EA IV ONE (20:00)
[2025-05-23] MEDS ORDERED: ONDA-282 PO (20:36)
[2025-05-23] MEDS: KETOROLAC 30 MG/ML 1 ML VIAL IV ONE (20:50)
[2025-05-23 21:17] VITALS: BP 135/90; TEMP 97.5; O2SAT 98
== END 2025-05-23 21:17 | disposition home or self-care (01) ==
LOC: M ED 13:47
DX: S06.0X0A Concussion without loss of consciousness, initial encounter (principal); W01.0XXA Fall on same level from slipping, tripping and stumbling without subsequent striking against object, initial encounter; Y92.9 Unspecified place or not applicable; Y93.9 Activity, unspecified; Y99.9 Unspecified external cause status; M50.222 Other cervical disc displacement at C5-C6 level; K21.9 Gastro-esophageal reflux disease without esophagitis; K52.9 Noninfective gastroenteritis and colitis, unspecified; I10 Essential (primary) hypertension; G93.41 Metabolic encephalopathy; F17.200 Nicotine dependence, unspecified, uncomplicated; M50.223 Other cervical disc displacement at C6-C7 level; M51.27 Other intervertebral disc displacement, lumbosacral region
CPT/HCPCS: 70450; 72125; 72128; 72131; 80048; 80076; 85025; 96361; 96374; 96375; 99284; J0131; J1885; J2405; J2765

== ENCOUNTER 2025-06-03 17:45 | Inpatient (IN) | payer OTHER, MEDICAID ==
[~2025-06-03] VITALS: Ht 180.3 cm; Wt 63.1 kg
[~2025-06-03 17:45] MED LIST changes: +ONDA-282 PO
[2025-06-03] MEDS: NS (Normal Saline) 0.9% 1,000 ML IV ONE (18:09)
[2025-06-03] MEDS: diphenhydrAMINE 50 MG/ML VIAL IV STA (18:09)
[2025-06-03] MEDS: KETOROLAC 30 MG/ML 1 ML VIAL IV ONE (19:56)
[2025-06-03] MEDS: ACETAMINOPHEN *IV* 1,000 MG in IV 1 EA IV ONE (19:56)
[2025-06-03] MEDS: ONDANSETRON 4MG 2ML VIAL IV ONE (19:56)
[2025-06-03 20:03] LABS: CALCIUM LEVEL 8.8 MG/DL (8.5-10.1); CARBON DIOXIDE LEVEL 27 MMOL/L (20-31); CHLORIDE LEVEL 101 MMOL/L (98-107); CREATININE FOR GFR 0.63 MG/DL (0.70-1.30); GLOMERULAR FILTRATION RATE > 90.0 (>60); POTASSIUM SERUM 3.7 MMOL/L (3.5-5.1); SODIUM LEVEL 142 MMOL/L (136-145)
[2025-06-03] MEDS: HALOPERIDOL LACTATE 5 MG/ML VIAL IV ONE (21:31)
[2025-06-03 23:26] LABS: BASO # 0.1 10^3/uL (0.0-0.2); BASO % 0.6 % (0.0-1.0); EOS # 0.0 10^3/uL (0.0-0.5); EOS % 0.2 % (0.0-3.0); LYMPH # 1.2 10^3/uL (1.5-5.0); LYMPH % 13.4 % (24.0-44.0); MONO # 0.7 10^3/uL (0.0-0.8); MONO % 7.5 % (2.0-8.0); NEUTROPHILS # 6.9 10^3/uL (1.5-8.5); NEUTROPHILS % 78.0 % (36.0-66.0); PLATELET COUNT, AUTOMATED 177 10^3/uL (150-450)
[2025-06-03 23:48] LABS: ALT/SGPT 76.0 U/L (7.0-40); AST/SGOT 111.0 U/L (<34)
[2025-06-04] VITALS (8 sets, daily range): BP systolic 118–184; BP diastolic 73–96; TEMP 97.5–98.4; O2SAT 97–99
[2025-06-04] MEDS ORDERED: ISOVUE-370 76% 100 ML VIAL As Ordered ONE (04:47)
[2025-06-04] MEDS: LIDOCAINE 2% 5 ML JELLY UROJET TOP ONE (05:00)
[2025-06-04] MEDS: NS (Normal Saline) 0.9% 1,000 ML IV ONE ×4 (05:14→12:51)
[2025-06-04] MEDS: MORPHINE 4 MG/ML 1 ML VIAL IV PRN (05:19)
[2025-06-04] MEDS ORDERED: ALBUTEROL SULFATE 2.5 MG/0.5 ML INH CONCENTRATE NEB SOLN NEB PRN (05:25)
[2025-06-04] MEDS ORDERED: ONDANSETRON 4MG 2ML VIAL IV PRN (05:30)
[2025-06-04] MEDS ORDERED: MORPHINE 4 MG/ML 1 ML VIAL IV PRN ×2 (05:30)
[2025-06-04 05:42] LABS: APPEARANCE, URINE CLEAR (CLEAR); BACTERIA, URINE AUTO NEGATIVE (NEGATIVE); BILIRUBIN, URINE AUTO NEGATIVE (NEGATIVE); BLOOD, URINE BLOOD NEGATIVE (NEGATIVE); GLUCOSE, URINE (UA) AUTO NEGATIVE (NEGATIVE); KETONE, URINE AUTO 1+ mg/dL (NEGATIVE); LEUKOCYTE ESTERASE, URINE AUTO NEGATIVE (NEGATIVE); MUCUS, URINE SMALL (NEGATIVE); NITRITE, URINE AUTO NEGATIVE (NEGATIVE); PROTEIN, URINE AUTO NEGATIVE (NEGATIVE); RBC, URINE AUTO 0 /HPF (0-3); SPECIFIC GRAVITY URINE AUTO 1.014 (1.002-1.035); SQUAMOUS EPITHELIAL CELL UR AU 0 /HPF (0-6); UROBILINOGEN, URINE AUTO 0.2 mg/dL (0.0-2.0); WBC, URINE AUTO 0 /HPF (0-3)
[2025-06-04 06:14] LABS: AMPHETAMINES LEVEL URINE NEGATIVE (NEGATIVE); BARBITURATES URINE NEGATIVE (NEGATIVE); BENZODIAZEPINES URINE NEGATIVE (NEGATIVE); COCAINE METABOLITE URINE NEGATIVE (NEGATIVE); METHADONE URINE NEGATIVE (NEGATIVE); OPIATES URINE NEGATIVE (NEGATIVE); PHENCYCLIDINE URINE NEGATIVE (NEGATIVE)
[2025-06-04 06:15] LABS: CANNABINOIDS URINE POSITIVE (NEGATIVE)
[2025-06-04] MEDS ORDERED: NICOTINE 14 MG/24 HR TRANSDERMAL TD PRN (06:15)
[2025-06-04] MEDS ORDERED: NICOTINE POLACRILEX 2 MG GUM PO PRN (06:15)
[2025-06-04 06:26] LABS: CHOLESTEROL LEVEL 243.0 MG/DL (<200); CHOLESTEROL RISK RATIO 2.1 (<5); LDL CHOLESTEROL 96.5 MG/DL (<100); NON-HDL-C 127.5 MG/DL; TRIGLYCERIDES LEVEL 155.0 MG/DL (<150)
[2025-06-04 06:42] LABS: BASO # 0.1 10^3/uL (0.0-0.2); BASO % 0.8 % (0.0-1.0); EOS # 0.0 10^3/uL (0.0-0.5); EOS % 0.6 % (0.0-3.0); LYMPH # 1.1 10^3/uL (1.5-5.0); LYMPH % 15.2 % (24.0-44.0); MONO # 0.7 10^3/uL (0.0-0.8); MONO % 9.6 % (2.0-8.0); NEUTROPHILS # 5.2 10^3/uL (1.5-8.5); NEUTROPHILS % 73.4 % (36.0-66.0); PLATELET COUNT, AUTOMATED 169 10^3/uL (150-450)
[2025-06-04] MEDS: LR 1,000 ML IV SCH (06:43)
[2025-06-04] MEDS: THIAMINE 100 MG TAB PO SCH (06:45)
[2025-06-04 06:53] LABS: INR 0.93
[2025-06-04 07:32] LABS: CALCIUM LEVEL 7.8 MG/DL (8.5-10.1); CARBON DIOXIDE LEVEL 23 MMOL/L (20-31); CHLORIDE LEVEL 99 MMOL/L (98-107); CREATININE FOR GFR 0.57 MG/DL (0.70-1.30); GLOMERULAR FILTRATION RATE > 90.0 (>60); POTASSIUM SERUM 3.6 MMOL/L (3.5-5.1); SODIUM LEVEL 139 MMOL/L (136-145)
[2025-06-04] MEDS ORDERED: ONDA-282 PO (07:59)
[2025-06-04] MEDS ORDERED: HOME MED LIST COMPLETE! XX SCH (08:00)
[2025-06-04] MEDS ORDERED: NALOXONE INJ 0.4 MG/1 ML VIAL IV PRN (08:45)
[2025-06-04] MEDS: HYDROMORPHONE HCL 0.5 MG/0.5 ML SYRINGE IV ONE ×2 (09:04→16:08)
[2025-06-04] MEDS ORDERED: ONDANSETRON 4MG 2ML VIAL IV SCH (10:00)
[2025-06-04 10:27] LABS: MAGNESIUM LEVEL 1.5 MG/DL (1.8-2.4); POTASSIUM SERUM 3.5 MMOL/L (3.5-5.1)
[2025-06-04] MEDS: CALCIUM GLUCONATE 1,000 MG in DEXTROSE 5% (D5W) MINI-BAG PLU 100 ML IV ONE (10:49)
[2025-06-04] MEDS: POTASSIUM CHLORIDE 10MEQ SR TABLET PO ONE (10:50)
[2025-06-04] MEDS: KETOROLAC 30 MG/ML 1 ML VIAL IV SCH (10:51)
[2025-06-04] MEDS: FOLIC ACID 1 MG TAB PO SCH (10:51)
[2025-06-04] MEDS: SCOPOLAMINE 1MG TRANSDERMAL PATCH TOP SCH (10:51)
[2025-06-04] MEDS: MULTIVITAMINS/MINERALS THERAP 1 TAB PO SCH (10:51)
[2025-06-04] MEDS: HYDROMORPHONE HCL 0.5 MG/0.5 ML SYRINGE IV PRN (11:58)
[2025-06-04] MEDS: MAG SULF 1GM/100ML (MAG RUN) 1 GM in IV 1 EA IV ONE (12:50)
[2025-06-04] MEDS ORDERED: LOPERAMIDE 2 MG CAPLET PO PRN (15:20)
[2025-06-04] MEDS: LOPERAMIDE 2 MG CAPLET PO ONE (15:38)
[2025-06-04] MEDS: NS (Normal Saline) 0.9% 1,000 ML IV SCH (15:38)
[2025-06-04] MEDS: amLODIPine 10 MG TAB PO ONE (15:39)
[2025-06-04 16:00] LABS: CALCIUM LEVEL 7.7 MG/DL (8.5-10.1); CARBON DIOXIDE LEVEL 26 MMOL/L (20-31); CHLORIDE LEVEL 101 MMOL/L (98-107); CREATININE FOR GFR 0.60 MG/DL (0.70-1.30); GLOMERULAR FILTRATION RATE > 90.0 (>60); POTASSIUM SERUM 3.9 MMOL/L (3.5-5.1); SODIUM LEVEL 139 MMOL/L (136-145)
[2025-06-04 16:04] LABS: MAGNESIUM LEVEL 1.8 MG/DL (1.8-2.4); POTASSIUM SERUM 3.9 MMOL/L (3.5-5.1)
[2025-06-04] MEDS: KCL 20MEQ IN D5/NS 1000ML 1,000 ML IV SCH (21:23)
[2025-06-04] MEDS: MAGNESIUM OXIDE 400 MG TAB PO SCH (21:24)
[2025-06-04] MEDS: CALCIUM CARBONATE 500 MG CHEW U/D PO SCH (21:26)
[2025-06-04] MEDS: POTASSIUM CHLORIDE 10MEQ SR TABLET PO SCH (21:26)
[2025-06-04 21:54] LABS: MAGNESIUM LEVEL 1.6 MG/DL (1.8-2.4); POTASSIUM SERUM 4.0 MMOL/L (3.5-5.1)
[2025-06-05] VITALS (9 sets, daily range): BP systolic 101–150; BP diastolic 71–84; TEMP 97.2–99; O2SAT 96–99
[2025-06-05] MEDS: HYDROMORPHONE HCL 0.5 MG/0.5 ML SYRINGE IV PRN (00:18)
[2025-06-05 03:26] LABS: PLATELET COUNT, AUTOMATED 165 10^3/uL (150-450)
[2025-06-05 03:53] LABS: MAGNESIUM LEVEL 1.7 MG/DL (1.8-2.4); POTASSIUM SERUM 4.3 MMOL/L (3.5-5.1)
[2025-06-05 04:18] LABS: ALT/SGPT 48 U/L (7.0-40); AST/SGOT 57 U/L (<34); CALCIUM LEVEL 8.6 MG/DL (8.5-10.1); CARBON DIOXIDE LEVEL 26 MMOL/L (20-31); CHLORIDE LEVEL 102 MMOL/L (98-107); CREATININE FOR GFR 0.49 MG/DL (0.70-1.30); GLOMERULAR FILTRATION RATE > 90.0 (>60); POTASSIUM SERUM 4.3 MMOL/L (3.5-5.1); SODIUM LEVEL 137 MMOL/L (136-145)
[2025-06-05 08:52] LABS: MAGNESIUM LEVEL 1.8 MG/DL (1.8-2.4); POTASSIUM SERUM 4.3 MMOL/L (3.5-5.1)
[2025-06-05] MEDS: CALCIUM GLUCONATE 1,000 MG in DEXTROSE 5% (D5W) MINI-BAG PLU 100 ML IV ONE (09:33)
[2025-06-05] MEDS: MAG SULF 1GM/100ML (MAG RUN) 1 GM in IV 1 EA IV ONE (11:07)
[2025-06-05] MEDS: NS (Normal Saline) 0.9% 1,000 ML IV SCH (11:07)
[2025-06-05 15:53] LABS: MAGNESIUM LEVEL 2.0 MG/DL (1.8-2.4); POTASSIUM SERUM 4.2 MMOL/L (3.5-5.1)
[2025-06-05 21:20] LABS: MAGNESIUM LEVEL 1.9 MG/DL (1.8-2.4); POTASSIUM SERUM 3.9 MMOL/L (3.5-5.1)
[2025-06-06] VITALS (7 sets, daily range): BP systolic 108–145; BP diastolic 69–82; TEMP 98.4–99; O2SAT 99
[2025-06-06 03:25] LABS: PLATELET COUNT, AUTOMATED 154 10^3/uL (150-450)
[2025-06-06 04:04] LABS: ALT/SGPT 38 U/L (7.0-40); AST/SGOT 43 U/L (<34); CALCIUM LEVEL 8.2 MG/DL (8.5-10.1); CARBON DIOXIDE LEVEL 25 MMOL/L (20-31); CHLORIDE LEVEL 105 MMOL/L (98-107); CREATININE FOR GFR 0.57 MG/DL (0.70-1.30); GLOMERULAR FILTRATION RATE > 90.0 (>60); MAGNESIUM LEVEL 2.0 MG/DL (1.8-2.4); POTASSIUM SERUM 4.0 MMOL/L (3.5-5.1); SODIUM LEVEL 140 MMOL/L (136-145)
[2025-06-06] MEDS ORDERED: LOPERAMIDE 2 MG CAPLET PO PRN (09:45)
[2025-06-06] MEDS: LOPERAMIDE 2 MG CAPLET PO ONE (10:00)
[2025-06-06] MEDS: NS (Normal Saline) 0.9% 1,000 ML IV ONE (10:45)
[2025-06-06 10:55] LABS: MAGNESIUM LEVEL 2.0 MG/DL (1.8-2.4); POTASSIUM SERUM 4.2 MMOL/L (3.5-5.1)
[2025-06-06] MEDS ORDERED: CALCIUM GLUCONATE 1,000 MG in DEXTROSE 5% (D5W) MINI-BAG PLU 100 ML IV ONE (11:00)
[2025-06-06] MEDS: MAG SULF 1GM/100ML (MAG RUN) 1 GM in IV 1 EA IV ONE (11:54)
[2025-06-06] MEDS: POTASSIUM CHLORIDE 10MEQ SR TABLET PO ONE (11:55)
[2025-06-06] MEDS ORDERED: THIA100T7 PO (12:33)
[2025-06-06] MEDS ORDERED: FOLI1TAB11 PO (12:33)
[2025-06-06] MEDS ORDERED: MAGN400T33 PO (12:33)
[2025-06-06] MEDS ORDERED: NICO1DIS10 TOP (12:33)
[2025-06-06] MEDS: CALCIUM GLUCONATE 1,000 MG in DEXTROSE 5% (D5W) MINI-BAG PLU 100 ML IV ONE (13:01)
== END 2025-06-06 14:23 | disposition home or self-care (01) | DRG 282 ==
LOC: EDBD 17:45 → M ED 17:45 → M ED INP 17:46 → M MS4PR 06-04 08:25 → OBSVTOIN 06-04 09:22 → M MSPAV 06-04 16:18 → M MS4PR 06-04 16:18 → UNDODISIN 06-06 14:23
PROVIDERS: ADMIT Student in an Organized Health Care Education/Training Program; ATTEND Student in an Organized Health Care Education/Training Program
DX: K85.90 Acute pancreatitis without necrosis or infection, unspecified (principal); I10 Essential (primary) hypertension; K70.9 Alcoholic liver disease, unspecified; J45.909 Unspecified asthma, uncomplicated; F41.9 Anxiety disorder, unspecified; R33.9 Retention of urine, unspecified; F17.200 Nicotine dependence, unspecified, uncomplicated; F12.10 Cannabis abuse, uncomplicated; R94.31 Abnormal electrocardiogram [ECG] [EKG]; R19.7 Diarrhea, unspecified; F10.10 Alcohol abuse, uncomplicated; Z59.00 Homelessness unspecified; Z79.899 Other long term (current) drug therapy; Z87.820 Personal history of traumatic brain injury

== ENCOUNTER 2025-06-13 00:04 | Emergency (ER) | payer MEDICAID, OTHER ==
[~2025-06-13] VITALS: Ht 180.3 cm; Wt 61.4 kg
[~2025-06-13 00:04] MED LIST changes: +FOLI1TAB11 PO; +NICO1DIS10 TOP; +THIA100T7 PO
[2025-06-13 04:23] LABS: BASO # 0.1 10^3/uL (0.0-0.2); BASO % 1.7 % (0.0-1.0); EOS # 0.1 10^3/uL (0.0-0.5); EOS % 0.8 % (0.0-3.0); LYMPH # 2.0 10^3/uL (1.5-5.0); LYMPH % 27.2 % (24.0-44.0); MONO # 0.7 10^3/uL (0.0-0.8); MONO % 9.3 % (2.0-8.0); NEUTROPHILS # 4.4 10^3/uL (1.5-8.5); NEUTROPHILS % 60.7 % (36.0-66.0); PLATELET COUNT, AUTOMATED 292 10^3/uL (150-450)
[2025-06-13 04:49] LABS: CALCIUM LEVEL 9.0 MG/DL (8.5-10.1); CARBON DIOXIDE LEVEL 25 MMOL/L (20-31); CHLORIDE LEVEL 97 MMOL/L (98-107); CREATININE FOR GFR 0.54 MG/DL (0.70-1.30); GLOMERULAR FILTRATION RATE > 90.0 (>60); MAGNESIUM LEVEL 2.0 MG/DL (1.8-2.4); POTASSIUM SERUM 3.9 MMOL/L (3.5-5.1); SODIUM LEVEL 138 MMOL/L (136-145)
[2025-06-13 07:30] VITALS: BP 139/87; TEMP 97.2; O2SAT 96
== END 2025-06-13 08:21 | disposition home or self-care (01) ==
LOC: M ED 00:04
DX: S90.821A Blister (nonthermal), right foot, initial encounter (principal); S90.822A Blister (nonthermal), left foot, initial encounter; Y92.9 Unspecified place or not applicable; Y93.9 Activity, unspecified; Y99.9 Unspecified external cause status; I45.10 Unspecified right bundle-branch block; F17.210 Nicotine dependence, cigarettes, uncomplicated; F19.10 Other psychoactive substance abuse, uncomplicated; F10.10 Alcohol abuse, uncomplicated; Z79.51 Long term (current) use of inhaled steroids; Z79.899 Other long term (current) drug therapy

== ENCOUNTER 2025-06-26 19:49 | Emergency (ER) | payer OTHER ==
[~2025-06-26] VITALS: Ht 180.3 cm; Wt 61.4 kg
[2025-06-27 09:00] VITALS: BP 169/97; O2SAT 97
[2025-06-27 09:05] VITALS: TEMP 97
== END 2025-06-27 09:25 | disposition home or self-care (01) ==
LOC: M ED 19:49
DX: M21.372 Foot drop, left foot (principal); J45.909 Unspecified asthma, uncomplicated; F10.10 Alcohol abuse, uncomplicated; Z79.51 Long term (current) use of inhaled steroids; Z79.899 Other long term (current) drug therapy

== ENCOUNTER 2025-07-11 | Emergency (ER) | payer OTHER ==
[~2025-07-11] VITALS: Ht 177.8 cm; Wt 66.9 kg
[2025-07-11 01:12] LABS: BASO # 0.1 10^3/uL (0.0-0.2); BASO % 1.2 % (0.0-1.0); EOS # 0.2 10^3/uL (0.0-0.5); EOS % 4.1 % (0.0-3.0); LYMPH # 2.4 10^3/uL (1.5-5.0); LYMPH % 47.8 % (24.0-44.0); MONO # 0.5 10^3/uL (0.0-0.8); MONO % 9.3 % (2.0-8.0); NEUTROPHILS # 1.9 10^3/uL (1.5-8.5); NEUTROPHILS % 37.2 % (36.0-66.0); PLATELET COUNT, AUTOMATED 212 10^3/uL (150-450)
[2025-07-11 01:32] LABS: CALCIUM LEVEL 8.2 MG/DL (8.5-10.1); CARBON DIOXIDE LEVEL 26 MMOL/L (20-31); CHLORIDE LEVEL 102 MMOL/L (98-107); CK-MB VALUE MASS 2.0 NG/ML (<3.6); CPK CREATINE PHOSPHOKINASE 166 U/L (46-171); CREATININE FOR GFR 0.59 MG/DL (0.70-1.30); GLOMERULAR FILTRATION RATE > 90.0 (>60); MB/CK RELATIVE INDEX 1.20 (< OR =4); POTASSIUM SERUM 3.9 MMOL/L (3.5-5.1); SODIUM LEVEL 141 MMOL/L (136-145)
[2025-07-11] MEDS ORDERED: ISOVUE-370 76% 100 ML VIAL As Ordered ONE (04:13)
[2025-07-11 04:36] LABS: CK-MB VALUE MASS 1.8 NG/ML (<3.6)
[2025-07-11 04:38] LABS: CPK CREATINE PHOSPHOKINASE 152.0 U/L (46-171); MB/CK RELATIVE INDEX 1.18 (< OR =4)
[2025-07-11 06:15] VITALS: BP 113/78; TEMP 97.4; O2SAT 98
== END 2025-07-11 06:28 | disposition home or self-care (01) ==
LOC: M ED
DX: R07.89 Other chest pain (principal); I45.10 Unspecified right bundle-branch block; F12.10 Cannabis abuse, uncomplicated; Z79.51 Long term (current) use of inhaled steroids; Z79.899 Other long term (current) drug therapy
CPT/HCPCS: 36415; 71275; 80048; 82550; 82553; 84484; 85025; 93005; 93041; 94760; 99285; Q9967

== ENCOUNTER 2025-07-18 01:01 | Emergency (ER) | payer OTHER ==
[~2025-07-18] VITALS: Ht 180.3 cm; Wt 61.3 kg
[2025-07-18 01:47] LABS: PLATELET COUNT, AUTOMATED 162 10^3/uL (150-450)
[2025-07-18 02:11] LABS: AMPHETAMINES LEVEL URINE NEGATIVE (NEGATIVE); BARBITURATES URINE NEGATIVE (NEGATIVE); BENZODIAZEPINES URINE NEGATIVE (NEGATIVE); COCAINE METABOLITE URINE NEGATIVE (NEGATIVE); METHADONE URINE NEGATIVE (NEGATIVE); OPIATES URINE NEGATIVE (NEGATIVE); PHENCYCLIDINE URINE NEGATIVE (NEGATIVE)
[2025-07-18 02:13] LABS: CANNABINOIDS URINE POSITIVE (NEGATIVE)
[2025-07-18 02:14] LABS: SALICYLATE LEVEL < 3.0 MG/DL (<30)
[2025-07-18 02:33] LABS: ALT/SGPT 33 U/L (7.0-40); AST/SGOT 65 U/L (<34); CALCIUM LEVEL 8.7 MG/DL (8.5-10.1); CARBON DIOXIDE LEVEL 24 MMOL/L (20-31); CHLORIDE LEVEL 99 MMOL/L (98-107); CREATININE FOR GFR 0.61 MG/DL (0.70-1.30); ETHYL ALCOHOL (ETHANOL) 0.323 % (0.000-0.010); GLOMERULAR FILTRATION RATE > 90.0 (>60); POTASSIUM SERUM 3.9 MMOL/L (3.5-5.1); SODIUM LEVEL 137 MMOL/L (136-145)
[2025-07-18] MEDS ORDERED: HOME MED LIST COMPLETE! XX SCH (06:10)
[2025-07-18] MEDS: OXAZEPAM 15MG CAP PO ONE (09:27)
[2025-07-18 11:32] VITALS: BP 120/76; TEMP 98.2; O2SAT 99
== END 2025-07-18 11:33 | disposition home or self-care (01) ==
LOC: M ED 01:01
DX: F10.120 Alcohol abuse with intoxication, uncomplicated (principal); I10 Essential (primary) hypertension; F17.210 Nicotine dependence, cigarettes, uncomplicated

== ENCOUNTER → 2025-08-05 | Outpatient (REF) | payer OTHER ==
[2025-08-05 13:09] LABS: ALT/SGPT 24 U/L (7.0-40); AST/SGOT 54 U/L (<34); CALCIUM LEVEL 8.5 MG/DL (8.5-10.1); CARBON DIOXIDE LEVEL 28 MMOL/L (20-31); CHLORIDE LEVEL 98 MMOL/L (98-107); CHOLESTEROL LEVEL 247 MG/DL (<200); CHOLESTEROL RISK RATIO 2.59 (<5); CREATININE FOR GFR 0.67 MG/DL (0.70-1.30); FREE T4 0.96 NG/DL (0.89-1.76); GLOMERULAR FILTRATION RATE > 90.0 (>60); LDL CHOLESTEROL 103.3 MG/DL (<100); MAGNESIUM LEVEL 1.8 MG/DL (1.8-2.4); NON-HDL-C 151.7 MG/DL; POTASSIUM SERUM 3.5 MMOL/L (3.5-5.1); SODIUM LEVEL 139 MMOL/L (136-145); TRIGLYCERIDES LEVEL 242 MG/DL (<150); VITAMIN B12 LEVEL 545 PG/ML (211-911)
[2025-08-05 13:40] LABS: HIV 1&2 SCREEN NEGATIVE (NEGATIVE)
[2025-08-05 13:48] LABS: HEPATITIS C VIRUS ABY INDEX < 0.02 INDEX (<0.8)
== END ==
LOC: M LAB REF 12:33
PROVIDERS: ATTEND Physician Assistant
DX: F10.11 Alcohol abuse, in remission (principal); R94.31 Abnormal electrocardiogram [ECG] [EKG]; Z13.220 Encounter for screening for lipoid disorders; A64 Unspecified sexually transmitted disease; Z11.3 Encounter for screening for infections with a predominantly sexual mode of transmission

== ENCOUNTER 2025-09-17 04:07 | Emergency (ER) | payer OTHER ==
[2025-09-17] MEDS: ACETAMINOPHEN 500 MG TAB PO ONE (06:44)
[2025-09-17 08:00] VITALS: BP 110/67; TEMP 97.3; O2SAT 97
== END 2025-09-17 08:24 | disposition home or self-care (01) ==
LOC: M ED 04:07 → EDBD 04:07 → M ED 08:24
DX: S06.0X0A Concussion without loss of consciousness, initial encounter (principal); Y92.9 Unspecified place or not applicable; Y93.9 Activity, unspecified; Y99.9 Unspecified external cause status; W01.0XXA Fall on same level from slipping, tripping and stumbling without subsequent striking against object, initial encounter; I10 Essential (primary) hypertension; F10.10 Alcohol abuse, uncomplicated